=== PATIENT | female | born 1990 | race Caucasian/White ===

== ENCOUNTER → 2020-06-09 10:54 | Outpatient (CLI) | payer OTHER, SELFPAY ==
--- NOTE | 2020-06-09 10:59 | DI.US.S_ITS ---
PROCEDURE: US OB >= 14 WEEKS FETUS INDICATIONS: ANATOMY SCAN OUTSIDE/PRIOR DATING DATA: Last menstrual period (LMP): 01/26/20 LMP-based estimated date of delivery (ALEXX): 11/01/20 . First dating scan (date and location): 06/09/21 . Estimated date of delivery (ALEXX) from first dating scan: 10/25/20 . TECHNIQUE: Real-time scanning was performed of the fetus, with image documentation and biometric measurements. Endovaginal scanning: Not performed. COMPARISON: None. FINDINGS: General: A single living intrauterine gestation is present. Presentation: Breech. Placenta: Placental position is posterior , without previa. Amniotic fluid index: 11.1 cm, normal range is 5-24 cm. heart rate: 143 beats per minute. Maternal cervical canal: 4.2 cm long. Normal lower limit is 2.5 cm. biometrics: Biparietal diameter: 4.5 cm, 19 weeks 4 days Head circumference: 16.7 cm, 19 weeks 3 days Abdominal circumference: 16.2 cm, 21 weeks 2 days Femur length: 3.4 cm, 20 weeks 4 days Estimated gestational age from initial scan: 20 weeks 2 days Composite gestational age from present scan: 20 weeks 2 days Estimated weight and percentile: 373 g, 99th percentile Measurement variability for biometric dating: +/- 7 days from 14 weeks to 15 weeks 6 days gestation, +/- 10 days from 16 weeks to 21 weeks 6 days gestation, +/- 2 weeks from 22 weeks to 27 weeks 6 days gestation, +/- 3 weeks for 28 weeks gestation or later. weight reference: 4500 g or EFW >90/95% is considered macrosomia or large for gestational age. EFW <10% is small for gestational age. EFW 5% or less is considered intra-uterine growth restriction. Anatomic survey: Neuro: Ventricles are non-dilated at less than 10 mm. Cisterna magna is normal at 3-11 mm. Cerebellum is normal in size and morphology. Nuchal skin fold: Normal at less than 6 mm between 14-21 weeks gestational age. Face: Nose and lips, facial profile are normal. Spine: No evidence for spina bifida. Heart: 4-chambered heart is present, with normal ventricular outflow tracts. Diaphragm: Diaphragm is intact. Stomach: Left-sided stomach is present. Kidneys: No hydronephrosis. Normal is less than 5 mm in 2nd trimester, less than 7 mm in 3rd trimester. Cord: 3-vessel cord has orthotopic insertion. Bladder: Normal in size. Extremities: All 4 extremities identified. IMPRESSION: Single living intrauterine fetus in breech presentation. Estimated weight technically measures at the 99th percentile, however ultrasound gestational age appears concordant with reported LMP as above. As clinically warranted, consider follow-up growth ultrasound in 4 weeks for further assessment Normal anatomic survey Dictated by: Rian Zambrano M.D. on 06/09/2020 at 16:21 Approved by: Rian Zambrano M.D. on 06/09/2020 at 16:29
== END ==
PROVIDERS: Referring Provider Nurse Practitioner Obstetrics & Gynecology; Visit Provider Nurse Practitioner Obstetrics & Gynecology
DX: Z36.89 Encounter for other specified antenatal screening (principal); Z3A.20 20 weeks gestation of pregnancy
CPT/HCPCS: 76811

== ENCOUNTER → 2020-07-22 08:09 | Outpatient (CLI) | payer SELFPAY ==
[2020-07-22 08:59] LABS: Hemoglobin 11.6 g/dL (12.0-16.0); Mean Corpuscular HGB Conc 33.3 % (30-36); Mean Corpuscular Hemoglobin 31.4 PG (26-34); Mean Corpuscular Volume 94.4 fL (80-100); Platelet Count 255 X10^3/uL (150-400); Red Blood Cell Count 3.71 X10^6/uL (4.0-5.2); Red Cell Distribution Width 12.9 % (11.6-14.8); White Blood Cell Count 8.9 X10^3/uL (4.5-11.0)
[2020-07-22 09:18] LABS: Glucose Fasting 86 mg/dL (70-100)
[2020-07-22 10:15] LABS: Glucose 1 Hour 145 mg/dL (70-170)
[2020-07-22 10:40] LABS: Glucose Tol Interpretation INTERPRETATION
[2020-07-22 11:56] LABS: Glucose 2 Hour 109 mg/dL (70-140)
== END ==
PROVIDERS: Referring Provider Nurse Practitioner Obstetrics & Gynecology; Visit Provider Nurse Practitioner Obstetrics & Gynecology
DX: Z34.90 Encounter for supervision of normal pregnancy, unspecified, unspecified trimester (principal); Z13.1 Encounter for screening for diabetes mellitus; Z3A.26 26 weeks gestation of pregnancy
CPT/HCPCS: 36415; 82951; 82952; 85027

== ENCOUNTER → 2020-10-07 11:40 | Outpatient (ROUT) | payer SELFPAY | PROVIDERS: Visit Provider Nurse Practitioner Obstetrics & Gynecology | DX: Z34.90 Encounter for supervision of normal pregnancy, unspecified, unspecified trimester (principal); Z3A.36 36 weeks gestation of pregnancy | CPT/HCPCS: 87081 ==

== ENCOUNTER 2020-10-28 07:13 | Inpatient (IN) | payer OTHER, SELFPAY ==
--- NOTE | 2020-10-28 07:32 | P.HPOB_ITS ---
OB HPI Date/Time Date of admission: 10/28/20 Date Patient Seen: 10/28/20 Time Patient Seen: 07:32 History of Present Condition Chief complaint: Induction : 1 Para: 0 Estimated Date of Delivery: 11/01/20 Estimated Gestational Age (weeks): 39.3wk Narrative: Ivanna Styles is a 30 year old female @ 39wks3 days by LMP and 7wk US who presents for elective IOL. Has been experiencing increasing discomforts of and is just done. Had a Butterfield balloon placed in 1cm cervix yesterday afternoon in clinic. Butterfield came out around 2230. Awoke w/ wet legs at 0200 and thinks her water broke. Has not had leaking fluid since. +FM. Currently no cramping or LOF. Has brown bloody show. Uncomplicated PN care w/ CNM. is present and supportive. Excited to have her mother here since the hospital just changed its policy to 2 support people for women in labor. Indications Indication for induction OB: maternal discomfort History of Present care: initiated at week # (7), number of visits (11) and pounds weight gain (23) Dating criteria: LMP confirmed by 1st trimester US Ultrasounds: normal mid trimester US Obstetrical complications: none Medical complications: none Preadmission Labs Blood type: AB (+) positive -: Antibody screen: negative, GBS status: negative, HBsAG: negative, HIV: negative and RPR/VDLR: negative -: Chlamydia screen: not detected and Gonorrhea screen: not detected -: Rubella: immune HCT: 35 HCAB: negative Cell-free DNA: Negative/female Narrative: 2hr gtt: 86/145/109 Prior (ies) History: none Evaluation Evaluation Baseline heart rate: 130 Variability: Moderate (11-25) monitor accelerations: Present Monitor Decelerations: Absent Contraction Frequency (minutes): 4 Uterine Contraction Intensity: Mild Status: Category l Cervical dilation (cm): 4 Cervical effacement (%): 75 station: -3 Non-invasive Membranes Rupture Test: negative PFSH Medical History (Updated 10/28/20 @ 13:09 by Whitney Taylor CNM) Acute stomach ulcer w/ hem Surgical History (Updated 10/10/17 @ 06:08 by Conversion Provider) History of tonsillectomy Family History (Updated 07/19/16 @ 00:00 by Conversion Provider) Father Age: 55 Hypertension Grandfather Hypertension Social History Smoking Status: Never smoker Meds Home Medications and Allergies Home Medications Medication Instructions Recorded Confirmed Type norgestimate-ethinyl estradiol See Rx Instructions .ROUTE 11/20/19 Rx 0.18 mg/0.215mg/0.25mg-35 .COMPLEX #84 tab mcg(28)tablet Allergies Allergy/AdvReac Type Severity Reaction Status Date / Time Penicillins [PENICILLINS] Allergy Unknown Hives Verified 10/28/20 08:59 Review of Systems Review of Systems ROS: Yes All systems reviewed with the patient and are negative except as other avila documented Exam Vital Signs (past 8 hours): BP 104/75, HR 65bpm, T 37.1C Temporal Presentation: vertex Other: by Juan's and CE Objective Labs Result Diagrams: 10/28/20 08:45 Labs: SARS-CoV-2: negative Assessment and Plan Assessment and Plan Assessment and Plan narrative: A: Term nullipara Elective IOL No indication for GBS prophylaxis Cat I FHR P: Admit, routine orders w/ pitocin augmentation. Labor support, PRN. Encouraged patience w/ balanced rest and ambulation during early hours. Reassess CE after 2 hours of strong contractions. Reassess in 4-6 or sooner, PRN. Time Spent with Patient Total time spent with greater than 50% in coordination of care (as documented) at patient's floor/unit and/or counseling patient:: 15-24 minutes
[2020-10-28] MEDS: LACTATED RINGERS 1,000 ML 100 ML IV ×2 (08:45→17:28)
[2020-10-28 08:57] VITALS: BP 104/75
[2020-10-28 08:58] LABS: COVID19 - ADMIT (NP swab/PCR) Negative (Negative)
[2020-10-28 09:06] LABS: Add Manual Diff / Slide Review NO; Basophils Absolute Auto 100 /uL (0-100); Basophils Percent Auto 0.6 % (0-2); Eosinophils Absolute Auto 200 /uL (0-450); Eosinophils Percent Auto 1.6 % (2-4); Hematocrit 38.6 % (36-46); Hemoglobin 12.9 g/dL (12.0-16.0); Lymphocytes Absolute Auto 1800 /uL (1100-4500); Lymphocytes Percent Auto 16.7 % (25-40); Mean Corpuscular HGB Conc 33.4 % (30-36); Mean Corpuscular Hemoglobin 31.7 PG (26-34); Monocytes Absolute Auto 700 /uL (0-900); Neutrophils Absolute Auto 8300 /uL (1500-7000); Neutrophils Percent Auto 75.1 % (50-75); Platelet Count 229 X10^3/uL (150-400); Red Blood Cell Count 4.07 X10^6/uL (4.0-5.2)
[2020-10-28] MEDS: OXYTOCIN PREMIX 30 UNIT/500 ML PLAST..BAG IV (09:06)
--- NOTE | 2020-10-28 13:13 | PM.OBPNLAB ---
Date/Time Date Patient Seen: 10/28/20 Time Patient Seen: 13:13 Pain Control Pain control: tolerating well Comments: Ivanna is sitting up in bed visiting w/ her mother and . Feeling mild contraction, not as strong as last night w/ the Butterfield balloon. VS: BP 106/67, HR 77bpm, T 37.3C Temporal Pelvic Exam Dilation (cm): 4 Effacement (%): 75 station: -3 Comments: CE deferred Contractions Contractions on admission: regular Monitor mode: External Pitocin rate (mU/min): 7 Contraction frequency (min): 3 Contraction duration (min): 1 Contraction pattern: Regular Contraction intensity: Mild Status status: Category l Heart Rate Baseline: 130 Monitor Accelerations: Present Monitor Decelerations: Variable (rare) Monitor Variability: Moderate Assessment and Plan Assessment: induction ongoing Plan: continuous present management
--- NOTE | 2020-10-28 18:05 | PM.OBPNLAB ---
Date/Time Date Patient Seen: 10/28/20 Time Patient Seen: 17:45 Pain Control Pain control: tolerating well Comments: Ambulating in halls and tolerating contractions well. Has had periods of stronger contractions, but then they fizzle out. Is agreeable to AROM, eager to get things going. Mother and remain present and supportive. VS: 110/63, HR 71bpm, T 37.2C Temporal Pelvic Exam Dilation (cm): 5 Effacement (%): 80 station: -2 Comments: AROM, large amount of clear fluid Contractions Contractions on admission: irregular Monitor mode: External Pitocin rate (mU/min): 18 Contraction frequency (min): 3 Contraction duration (min): 1 Contraction pattern: Regular Contraction intensity: Moderate Status status: Category l Heart Rate Baseline: 145 Monitor Accelerations: Present Monitor Decelerations: Absent Monitor Variability: Moderate Assessment and Plan Assessment: active labor Plan: continuous present management Comments: Contractions immediately stronger after AROM. Encouraged upright positioning for the next hour. Labor support PRN. Continue pitocin titration to Q3-4 minute contraction pattern. Reassess in 4 hours or sooner, PRN.
--- NOTE | 2020-10-28 19:30 | PM.OBPNLAB ---
Date/Time Date Patient Seen: 10/28/20 Time Patient Seen: 19:30 Pain Control Pain control: epidural Comments: Patient labor in the tub without adequate pain relief. Requested and is now comfortable w/ epidural. Butterfield catheter to gravity, draining clear, yellow urine. VS: BP 114/67, HR 75bpm, T 37.2C Temporal Pelvic Exam Dilation (cm): 6 Effacement (%): 100 station: -2 Amniotic membrane status: Leaking Contractions Contractions on admission: irregular Monitor mode: External Pitocin rate (mU/min): 12 Contraction frequency (min): 2 Contraction duration (min): 2 Contraction pattern: Regular Contraction intensity: Strong/Firm Status status: Category ll Heart Rate Baseline: 130 Monitor Accelerations: Present Monitor Decelerations: Variable Monitor Variability: Moderate Assessment and Plan Assessment: active labor Plan: continuous present management Comments: Encourage frequent position changes w/ peanut ball. Reassess in 4 hours or sooner, PRN.
--- NOTE | 2020-10-29 00:31 | PM.OBPRVD ---
Events: Labor Induction (elective) Labor & Delivery Delivery date: 10/29/20 Cervical ripening method: per Butterfield bulb protocol Induction method: per pitocin protocol Delivery monitor: external FHT and external uterine Route of delivery: L&D Laceration Description: None Estimated blood loss (mL): 100 Anesthesia Type: Epidural Narrative: Ivanna was able to feel increasing rectal pressure, was checked and found to be C/C/+1. She pushed well with coaching and encouragement. NSVB of a viable baby girl in direct OA position. There was no nuchal cord and no additional maneuvers were required for delivery of the shoulders. was dried and stimulated and placed on maternal abdomen for skin to skin. Apgars 7/9. remaining 20 units of pitocin in 500mL LR was increased to 200mL/hr for AMTSL. After cessation of pulsation, the cord was double clamped and cut. Gentle cord traction and single maternal push led to spontaneous, Schultze delivery of an apparently intact placenta, membranes and 3VC. Fundus immediately firm and bleeding minimal. Vagina and perineum inspected and intact. QBL 100mL. Both mother and baby stable and skin to skin as I left the room. Baby 1: gender: Female Presentation: vertex Placenta delivery description: Spontaneous Cord Vessel Description: 3 Vessels score (1 min): 7 score (5 min): 9 weight: 3.4 kg Plan for aftercare: Routine care
[2020-10-29] MEDS: KETOROLAC 30 MG/ML VIAL IV (01:16)
[2020-10-29] MEDS: PRENATAL VIT,CALC/IRON/FOLIC 1 TABLET 1 TAB PO (08:36)
[2020-10-29] MEDS: DOCUSATE 100 MG CAPSULE PO (08:36)
[2020-10-29 08:38] VITALS: TEMP 37
[2020-10-29] MEDS: ACETAMINOPHEN 325 MG TABLET 650 MG PO (08:38)
[2020-10-29] MEDS: IBUPROFEN 600 MG TABLET PO ×2 (08:38→15:23)
--- NOTE | 2020-10-29 18:26 | PM.OBDS.1 ---
Discharge Providers Provider Date of admission: 10/28/20 07:13 Discharge Date: 10/29/20 Primary care physician: Whitney Taylor CNM Consults: 10/30/20 00:29 Consult to Family Engagement Specialist Routine Comment: Discharge provider: Whitney Taylor CNM Summary Discharge Diagnosis (1) Encounter for full-term uncomplicated delivery: Status: Acute Problem Details: Ivanna is sitting up in bed, dressed in her own clothes, exhausted, but eager for discharge to home. Voiding, ambulating and independently. Tolerating a general diet. Lochia is moderate to light, no clots. Pain is well controlled w/ Tylenol. Darius remains present and supportive. Ivanna has a strong social and support network. Time Spent with Patient Time attestation: Total time spent providing and/or coordinating discharge services: Objective Labs Result Diagrams: 10/28/20 08:45 Exam Vital Signs (past 8 hours): BP 105/58, HR 72bpm, RR 16/min, T 98.5F Temporal Other: Fundus firm @ U-1, lochia light, no clots. Perineum intact w/ mild edema. Discharge Plan Discharge Plan Patient Disposition: Home Discharge orders & Medications Prescriptions: No Action No Known Home Medications RF: 0 Follow up/Referrals: Whitney Taylor CNM [Primary Care Provider] - (Follow-up 11/12/20 @ 1100 by Telehealth Follow-up 12/10/20 @ 1100 in office) Diet/Activity/Treatments Diet: Regular Activity: pelvic rest x 6 weeks Skin/Wound/Dressing Care Report to your healthcare provider any signs of infection, such as:: chills, fever, increased pain, unusual drainage and unusual redness Visit Report/Discharge Packet Instructions: DI for Depression Discharge Data Primary Care Provider: Whitney Taylor
[2020-10-29 18:41] VITALS: BP 113/68; PULSE 66; RESP 17; TEMP 37.1
== END 2020-10-29 19:00 | disposition home or self-care (01) | DRG 807 ==
PROVIDERS: Admitting Provider Nurse Practitioner Obstetrics & Gynecology; PCP Nurse Practitioner Obstetrics & Gynecology; Referring Provider Nurse Practitioner Obstetrics & Gynecology; Visit Provider Nurse Practitioner Obstetrics & Gynecology
DX: O80 Encounter for full-term uncomplicated delivery (principal); Z37.0 Single live birth; Z3A.39 39 weeks gestation of pregnancy; Z20.822 Contact with and (suspected) exposure to COVID-19
CPT/HCPCS: 01967; 36415; 59050; 85025; 86850; 86900; 86901; 87635; C9803; G0379; J1885; J2590

== ENCOUNTER → 2022-03-24 14:15 | Outpatient (CLI) | payer OTHER, SELFPAY ==
--- NOTE | 2022-03-24 | DI.US.S_ITS ---
PROCEDURE: US OB >= 14 WEEKS FETUS INDICATIONS: 20 WEEK ANATOMY SCREEN OUTSIDE/PRIOR DATING DATA: Last menstrual period (LMP): 11/01/2021. LMP-based estimated date of delivery (ALEXX): 08/08/2021. TECHNIQUE: Real-time scanning was performed of the fetus, with image documentation and biometric measurements. Endovaginal scanning: Not performed. COMPARISON: None from this . FINDINGS: General: A single living intrauterine gestation is present. Presentation: Transverse. Placenta: Placental position is posterior , without previa. Amniotic fluid index: 12.2 cm, normal range is 5-24 cm. Single deepest vertical pocket is 3.8 cm. heart rate: 147 beats per minute. Maternal cervical canal: 4.1 cm long. Normal lower limit is 2.5 cm. biometrics: Biparietal diameter: 5.1 centimeters, 21 weeks 3 days Head circumference: 18.9 centimeters, 21 weeks 1 day Abdominal circumference: 16.1 centimeters, 21 weeks 1 day Femur length: 3.5 centimeters, 21 weeks 0 days estimated gestational age: 20 weeks 3 days Composite gestational age from present scan: 21 weeks 1 day Estimated weight and percentile: 399 grams, 81st percentile Anatomic survey: Neuro: Ventricles are non-dilated at less than 10 mm. Cisterna magna is normal at 3-11 mm. Cerebellum is normal in size and morphology. Nuchal skin fold: Normal at less than 6 mm between 14-21 weeks gestational age. Face: Nose and lips, facial profile are normal. Spine: No evidence for spina bifida. Heart: 4-chambered heart is present, with normal ventricular outflow tracts. Diaphragm: Diaphragm is intact. Stomach: Left-sided stomach is present. Kidneys: No hydronephrosis. Normal is less than 5 mm in 2nd trimester, less than 7 mm in 3rd trimester. Cord: 3-vessel cord has orthotopic insertion. Bladder: Normal in size. Extremities: All 4 extremities identified. IMPRESSION: 1. Single living intrauterine . 2. Normal 2nd trimester anatomy survey. No anomalies detected at this time. We strive to produce accurate, complete, and clear reports of imaging services. To assist us in improving patient care, this report was composed using standard report templates and voice recognition software. Therefore, it may contain abnormal punctuation, insertions and/or omissions. Occasional wrong-word or sound-alike substitutions may occur. Though we review the report and make efforts to correct it, we do recommend that the report be read carefully in proper context to recognize any text inaccuracies. Dictated by: James Lassiter M.D. on 03/24/2022 at 20:18 Approved by: James Lassiter M.D. on 03/24/2022 at 20:42
== END ==
PROVIDERS: PCP Nurse Practitioner Obstetrics & Gynecology; Referring Provider Nurse Practitioner Obstetrics & Gynecology; Visit Provider Nurse Practitioner Obstetrics & Gynecology
DX: Z34.92 Encounter for supervision of normal pregnancy, unspecified, second trimester (principal); Z3A.21 21 weeks gestation of pregnancy
CPT/HCPCS: 76811

== ENCOUNTER 2022-07-31 15:25 | Inpatient (IN) | payer OTHER, SELFPAY ==
--- NOTE | 2022-07-31 16:10 | P.HPOB_ITS ---
OB HPI Date/Time Date of admission: 07/31/22 Date Patient Seen: 07/31/22 Time Patient Seen: 16:10 History of Present Condition Chief complaint: maternity : 3 Para: 1 Estimated Date of Delivery: 08/08/22 Estimated Gestational Age (weeks): 38.6 Narrative: Ivanna Styles is a 31 year old female @ 38wks 6days by sure LMP and 10wk US who presents for evaluation of labor. Contractions started last night and are stronger and more regular this afternoon. Uncomplicated care with CNM. Desires epidural JORGE. is present and supportive. History of Present care: good care, initiated at week # (10), number of visits (8) and pounds weight gain (21) Dating criteria: LMP confirmed by 1st trimester US Ultrasounds: normal mid trimester US Obstetrical complications: none Medical complications: none Preadmission Labs Blood type: AB (+) positive -: Antibody screen: negative, GBS status: negative, HBsAG: negative, HIV: negative and RPR/VDLR: negative -: Chlamydia screen: not detected and Gonorrhea screen: not detected -: Rubella: immune and Varicella: immune HCT: 33.4 HCAB: negative Cell-free DNA: Negative 1 hr GTT: 114 Prior (ies) History: 10/29/2020: NSVB @ 39wks, 3.6kg, elective IOL w/ epidural, Intact, Ap gars 7/9, QBL 100mL; 2021: SAB @ 5wks Evaluation Evaluation Baseline heart rate: 135 Variability: Moderate (11-25) monitor accelerations: Present Monitor Decelerations: Absent Contraction Frequency (minutes): 4 Uterine Contraction Intensity: Moderate Status: Category l Dilation (cm): 5 Effacement (%): 60 station: -1 Position of cervix: posterior [facility] Medical History Acute stomach ulcer w/ hem Surgical History History of tonsillectomy Family History Father Age: 57 Hypertension Grandfather Hypertension Social History Smoking Status: Never smoker Meds Home Medications and Allergies Home Medications Medication Instructions Recorded Confirmed Type No Known Home Medications 10/29/20 10/29/20 History Allergies Allergy/AdvReac Type Severity Reaction Status Date / Time Penicillins [PENICILLINS] Allergy Unknown Hives Verified 10/28/20 08:59 Review of Systems Review of Systems ROS: Yes All systems reviewed with the patient and are negative except as otherwise documented OB Exam Vital signs Blood Pressure: 108/64 Pulse Rate: 90 Temperature: 36.3 F Resp Effort & Inspection: normal respiratory effort and able to speak in complete sentences Auscultation: clear to auscultation bilaterally Cardio Rate: regular rate Rhythm: regular rhythm Heart Sounds: S1 normal and S2 normal Presentation: vertex Objective Labs 07/31/22 16:15 Assessment and Plan Assessment and Plan Assessment and Plan narrative: A: Term primipara Active labor No indication for GBS prophylaxis Rh positive Cat I FHR P: Admit, routine orders w/ epidural when requested. Expectant management of labor. Labor support PRN. Reassess in 4 hours or sooner, PRN.
[2022-07-31 16:28] LABS: Add Manual Diff / Slide Review NO; Basophils Absolute Auto 100 /uL (0-100); Eosinophils Absolute Auto 100 /uL (0-450); Eosinophils Percent Auto 1.2 % (2-4); Hematocrit 41.6 % (36-46); Hemoglobin 14.4 g/dL (12.0-16.0); Lymphocytes Absolute Auto 1500 /uL (1100-4500); Lymphocytes Percent Auto 16.3 % (25-40); Mean Corpuscular HGB Conc 34.6 % (30-36); Mean Corpuscular Hemoglobin 31.9 PG (26-34); Mean Corpuscular Volume 92.4 fL (80-100); Monocytes Absolute Auto 600 /uL (0-900); Monocytes Percent Auto 6.5 % (3-14); Neutrophils Absolute Auto 7100 /uL (1500-7000); Platelet Count 169 X10^3/uL (150-400); Red Blood Cell Count 4.51 X10^6/uL (4.0-5.2); Red Cell Distribution Width 13.8 % (11.6-14.8); White Blood Cell Count 9.5 X10^3/uL (4.5-11.0)
[2022-07-31 16:51] VITALS: BP 108/64; PULSE 90; TEMP 2.4; TEMP 36.3
[2022-07-31 17:20] VITALS: BP 108/64
--- NOTE | 2022-07-31 21:15 | PM.OBPNLAB ---
Date/Time Date Patient Seen: 07/31/22 Time Patient Seen: 21:10 Pain Control Pain control: tolerating well Comments: Ivanna has been alternating ambulating and sitting on the ball. Contractions remain moderate to strong and she is breathing through them, but they have become irregular and spaced out. VS: BP 95/62, HR 86bpm, T 36.2C Axillary Pelvic Exam Dilation (cm): 5 Effacement (%): 70 station: -1 Amniotic membrane status: Intact Contractions Monitor mode: External (intermittent auscultation) Pitocin rate (mU/min): 0 Contraction frequency (min): 7 Contraction duration (min): 2 Contraction pattern: Irregular Contraction intensity: Moderate Status Heart Rate Baseline: 135 Comments: Reassuring by intermittent auscultation Assessment and Plan Assessment: active labor (slow progression) Plan: begin patient augmentation Comments: Offered AROM vs pitocin augmentation of labor for slow labor progress. Patient consents to pitocin which will be started. Epidural when requested. Reassess 2 hours after strong contractions are re-established.
[2022-07-31] MEDS: OXYTOCIN PREMIX 30 UNIT/500 ML PLAST..BAG IV (21:59)
--- NOTE | 2022-08-01 04:45 | PM.OBPNLAB ---
Date/Time Date Patient Seen: 08/01/22 Time Patient Seen: 03:30 Pain Control Pain control: tolerating well Comments: Alternating ambulating in room and sitting up in bed. Feeling stronger, more regular contractions initially each time the pitocin is increased and then notices them weaken and space out. Open to AROm now, but would like epidural first. VS: BP 128/72, HR 68bpm, T 36.3C Temporal Pelvic Exam Dilation (cm): 6 Effacement (%): 70 station: -1 Amniotic membrane status: Intact Contractions Monitor mode: External Pitocin rate (mU/min): 12 Contraction frequency (min): 2 Contraction duration (min): 1 Contraction pattern: Irregular Contraction intensity: Moderate Status status: Category l Heart Rate Baseline: 130 Monitor Accelerations: Present Monitor Decelerations: Absent Assessment and Plan Assessment: active labor Plan: other (AROM after epidural placement)
--- NOTE | 2022-08-01 04:50 | PM.OBPNLAB ---
Date/Time Date Patient Seen: 08/01/22 Time Patient Seen: 04:40 Pain Control Pain control: epidural Comments: Now comfortable after epidural placement and consenting to AROM. VS: BP 105/60, HR 60bpm, T 36.3C Temporal Pelvic Exam Dilation (cm): 6 Effacement (%): 70 station: -1 Amniotic membrane status: Ruptured (scant, clear) Contractions Monitor mode: External Pitocin rate (mU/min): 14 Contraction frequency (min): 2 Contraction duration (min): 1 Contraction pattern: Regular Contraction intensity: Moderate Status status: Category l Heart Rate Baseline: 135 Monitor Accelerations: Present Monitor Decelerations: Absent Assessment and Plan Assessment: active labor Plan: continuous present management Comments: Anticpate NSVB. Reassess in 4 hours or sooner, PRN.
--- NOTE | 2022-08-01 06:22 | P.PCNOB_ITS ---
Events: Labor Augmentation Labor & Delivery Delivery date: 08/01/22 Intrapartal Events: None Cervical ripening method: none Induction method: none Delivery augmentation: rupture of membranes and pitocin Delivery monitor: external FHT and external uterine Route of delivery: Episiotomy description: None L&D Laceration Description: None Quantitative Blood Loss: 5 Anesthesia Type: Epidural Narrative: With epidural in place, Ivanna began to feel worsening back pressure after AROM and was given additional epidural boluses. Amniotic fluid remained clear and max dose of pitocin was 14mu/min. Found to be C/C/+2 and pushing was initiated at 0540. Steady descent of vertex with coached pushing in alternating side lying positions. Cat II FHR during second stage. NSVB of a vigorous baby boy in CHRISTINE position at 0606. There was no nuchal cord and the shoulders delivered easily, without additional maneuvers. Crying infant was placed on maternal abdomen for drying and skin to skin. After 5 minutes, the cord was double clamped and cut. Remaining 30 units of pitocin in 500mL LR was increased to 250mL/hr for AMTSL. Cord blood hold sample was collected. Gentle cord traction and a single maternal push led to spontaneous, Schultze delivery of an apparently intact placenta, membranes and 3VC. Fundus immediately firm and bleeding scant. Vagina and perineum inspected and intact. QBL 5mL. Both mother and baby stable and skin to skin as I left the room. [facility] Baby 1: Infant gender: Male Presentation: vertex Position: Left Occiput Anterior Placenta delivery description: Spontaneous Cord Vessel Description: 3 Vessels score (1 min): 9 score (5 min): 9 weight: 3.396 kg Plan for aftercare: Routine care (Anticipate d/c to home in 24 hours)
[2022-08-01 06:44] VITALS: BP 93/62; PULSE 68; RESP 16; TEMP 36.5
[2022-08-01] MEDS: KETOROLAC 30 MG/ML VIAL IV ×2 (08:26→16:15)
[2022-08-01] MEDS: ACETAMINOPHEN 325 MG TABLET 650 MG PO (19:30)
[2022-08-02] MEDS: ACETAMINOPHEN 325 MG TABLET 650 MG PO (07:01)
--- NOTE | 2022-08-02 08:36 | P.DS_ITS ---
Discharge Providers Provider Date of admission: 07/31/22 15:25 Discharge Date: 08/02/22 Primary care physician: Whitney Ludwig CNM Consults: 07/31/22 16:05 Consult to Anesthesiology Urgent Comment: Consulting Provider: Pelon Julio Reason for consultation: Epidural Has provider been notified: No 08/02/22 06:21 Consult to Biodiesel Division Manager Routine Comment: Discharge provider: Whitney Ludwig CNM Summary Hospital Course Date Patient Seen: 08/02/22 Time Patient Seen: 08:36 Diagnoses: Term Hospital Course: Arrived in early labor. Augmentation led to . Normal course. Peripartum Data Infant Delivery Method: Natural Vaginal Episiotomy description: None 1: Gender: Male Status at Discharge Cognitive/behavioral status at discharge: oriented, at baseline, oriented and calm Functional status at discharge: independent ambulation Overall status at discharge: patient is back to baseline Time Spent with Patient Time attestation: Total time spent providing and/or coordinating discharge services: 30 minutes Time spent: Less than 30 minutes Specific discharge activities: review warning signs and when to call with concerns including bleeding, s/sx pre-eclampsia, fever, s/sx infection, mood concerns. Objective Labs 07/31/22 16:15 Exam Vital Signs (past 8 hours): 108/64 90 bpm 36.3 F Const General: healthy appearing and comfortable Nutritional Appearance: well nourished Orientation: alert, awake and oriented x3 HENMT Head: normocephalic Eyes General: appearance normal, both eyes and all related structures Resp Effort & Inspection: normal respiratory effort GI Other: stooled since delivery Other: Fundus firm, midline, U-2 Intact perineum Skin General: no rashes or lesions noted Neuro General: normal light touch, pain and propioception Extrem Other: very mild, non pitting edema noted in LE bilaterally Psych Appearance: grossly normal Mental Status: mental status grossly normal Speech and Movement: speech and movement normal Discharge Plan Discharge Plan Patient Disposition: Home Provider Discharge Comment: with Discharge orders & Medications Prescriptions: No Action No Known Home Medications Medication counseling provided by Pharmacist: No Follow up/Referrals: Whitney Ludwig CNM [Primary Care Provider] - Diet/Activity/Treatments Diet: Diet as Tolerated and Regular Activity: recommend low harrison activity while healing for 2 weeks Cold/Heat Therapy: as needed for perineal or other pain Catheter comment: none Skin/Wound/Dressing Care Skin care: usual care Report to your healthcare provider any signs of infection, such as:: chills, fever, increased pain, unusual drainage and unusual redness Visit Report/Discharge Packet Stand Alone Forms: Patient Portal/API, Stroke Signs & Symptoms Discharge Data Primary Care Provider: Whitney Ludwig
--- NOTE | 2022-08-02 08:58 | PM.OBDS.1 ---
Discharge Providers Provider Date of admission: 07/31/22 15:25 Discharge Date: 08/02/22 Primary care physician: Whitney Ludwig CNM Consults: 07/31/22 16:05 Consult to Anesthesiology Urgent Comment: Consulting Provider: Pelon Julio Reason for consultation: Epidural Has provider been notified: No 08/02/22 06:21 Consult to Capacity Planning Engineer Routine Comment: Discharge provider: Whitney Ludwig CNM Summary Hospital Course Hospital Course: Arrived in early labor. Augmentation led to . Normal course. Time Spent with Patient Time attestation: Total time spent providing and/or coordinating discharge services: Objective Labs 07/31/22 16:15 Discharge Plan Discharge Plan Patient Disposition: Home Provider Discharge Comment: with . Follow up 08/08 (telehealth) 09/05 for 6 week PPV with Whitney Ludwig in clinic. Discharge orders & Medications Prescriptions: No Action No Known Home Medications Medication counseling provided by Pharmacist: No Follow up/Referrals: Whitney Ludwig CNM [Primary Care Provider] - (Follow-up at 2 and 6 weeks ) Diet/Activity/Treatments Diet: Diet as Tolerated and Regular Activity: recommend low harrison activity while healing for 2 weeks Cold/Heat Therapy: as needed for perineal or other pain Catheter comment: none Skin/Wound/Dressing Care Skin care: usual care Report to your healthcare provider any signs of infection, such as:: chills, fever, increased pain, unusual drainage and unusual redness Visit Report/Discharge Packet Instructions: DI for Labor and Delivery, Vaginal Stand Alone Forms: Patient Portal/API, Stroke Signs & Symptoms Discharge Data Primary Care Provider: Whitney Ludwig
== END 2022-08-02 09:55 | disposition home or self-care (01) | DRG 807 ==
PROVIDERS: Admitting Provider Nurse Practitioner Obstetrics & Gynecology; PCP Nurse Practitioner Obstetrics & Gynecology; Referring Provider Nurse Practitioner Obstetrics & Gynecology; Visit Provider Nurse Practitioner Obstetrics & Gynecology
DX: O80 Encounter for full-term uncomplicated delivery (principal); Z37.0 Single live birth; Z3A.38 38 weeks gestation of pregnancy; Z67.30 Type AB blood, Rh positive
CPT/HCPCS: 59050; 85025; 86850; 86900; 86901; G0379; J1885; J2590